=== PATIENT | female | born 1960 | race Caucasian/White ===

== ENCOUNTER 2018-10-08 12:44 | Day surgery (SDC) | payer BC ==
[2018-10-08] MEDS ORDERED: MIDAZOLAM 1 MG/ML 2 ML INJ ×2 (16:24)
[2018-10-08] MEDS ORDERED: FENTAnyl 50 MCG/ML VIAL (16:24)
== END 2018-10-08 17:12 | disposition home or self-care (01) ==
LOC: GIL 12:44
DX: Z12.11 Encounter for screening for malignant neoplasm of colon (principal); D12.5 Benign neoplasm of sigmoid colon; K64.8 Other hemorrhoids; E11.9 Type 2 diabetes mellitus without complications
CPT/HCPCS: 45380; 82962; 88305